=== PATIENT | male | born 1945 | race Caucasian/White ===

== ENCOUNTER 2020-03-29 14:24 | Inpatient (IN) | payer OTHER ==
[~2020-03-29] VITALS: Ht 185.4 cm; Wt 131.7 kg
--- NOTE | ~2020-03-29 | EEG ---
[facility] [place] [address] ELECTROENCEPHALOGRAM Name: ELICIA GRAYSON Room #: 201-P ADM IN M.R.#: [id number] Admission: 03/29/20 Attend Phys: Goran Giron MD Discharge: Date of : 47 Report #: [id number] THIS REPORT FOR: //name// CC: MICHAEL physician/PCP Goran Giron DATE OF SERVICE: 04/09/2020 This patient is being evaluated for altered mental status. EEG was done by placing the electrode by standard 10-20 system of electrode placement. Both referential and sequential montages were used for recording. Background activity in this patient's EEG is about 7-8 Hz and 15 microvolt. It is a poorly formed background activity. Photic stimulation is unremarkable. The patient went to sleep that is associated with bilateral slowing and vertex sharp waves. Throughout the record, no active epileptiform activity was noticed. IMPRESSION: This is an abnormal EEG, which is disorganized and poorly formed. That is a nonspecific abnormality, which can occur with encephalopathy, effect of psychotropic medication, dementia, etc. Clinical correlation is recommended. By: [id number] Chase Barragan MD /nt
--- NOTE | ~2020-03-29 | EMS ---
[place] [address] EMS Patient Care Report Name: ELICIA GRAYSON Room #: REG NEVAEH Forrest#: [id number] Admission: 03/29/20 Attend Phys: Discharge: Date of : 46 Report #: [id number] THIS REPORT FOR: //name// Report Transmitted: 03/29/2020 18:17 EMS Care Summary [place], [place]/[facility] Incident [id number] @ 03/29/2020 13:32 Incident [address] [place] [address] Patient ELICIA GRAYSON Male, 74 Years 1945 Patient Address [address] [place] [address] Patient History Congestive Heart Failure (CHF),Chronic Obstructive Pulmonary Disease (COPD),Atrial Fibrillation,Back Pain (Chronic), Patient Allergies Demerol, Patient Medications Losartan, Furosemide, Eliquis, Gabapentin, Cardizem, Metformin, Chief Complaint BACK PAIN Disposition Transported No Lights/[place] Dispatch Reason Back Pain (Non-Traumatic) Transported To [facility] Narrative DISPATCHED TO A BACK PAIN. ARRIVED ON SCENE TO BE MET BY POLICE AND FIRE. PATIENT TOLD DISPATCH THAT HE WAS UNABLE TO MAKE IT TO THE DOOR DUE TO SEVERE BACK PAIN. CREWS WERE ABLE TO MAKE ENTY THROUGH A REAR [place] [address] EMS Patient Care Report Name: ELICIA GRAYSON Room #: REG ER Lon#: [id number] Admission: 03/29/20 Attend Phys: Discharge: Date of : 46 Report #: [id number] AND OPEN THE FRONT DOOR. GHULAM WAS FOUND SITTING ON A SOFA IN THE FRONT ROOM. HE SAID THAT HE WAS HAVING A SEVERE BACK PAIN FOR TWO WEEKS. THE PAIN HAS EXISTED FOR YEARS BUT IS INTERMITTENT. IT HAS BEEN GETTING PROGRESSIVELY WORSE AND IN THE PAST TWO DAYS HE SAID HE WAS UNABLE TO MOVE FROM THE SOFA TO GET FOOD, WATER, OR MEDICATIONS. HE DESCRIBED THE PAIN SHARP AND SAID THAT IT WENT ALL ACROSS HIS LUMBAR AREA. PATIENT SAID HE HAS ALSO BEEN HAVING A PAIN IN HIS LEFT ARM FOR THOSE TWO DAYS. PATIENT DENIED ANY RECENT INJURIES. HE DENIED ANY OTHER ILLNESS OR PAIN. PATIENT WAS LIFTED TO THE COT, SECURED WITH STRAPS, AND MOVED TO THE AMBULANCE. PATIENT VITALS WERE OBTAINED ALONG WITH A 12 LEAD. HIS RADIAL PULSE WAS PALPATED AND FOUND TO BE WEAK AND MATCHING THE RATE ON THE MONITOR. PATIENT LUNGS WERE AUCULTATED. HE DENIED ANY SHORTNESS OF BREATH. AN IV WAS PLACED. PATIENT WAS PLACED ON OXYGEN VIA NASAL CANNULA. PATIENT WAS TRANSPORTED TO THE HOSPITAL WITH VITALS AND INTERVENTIONS MONITORED ENROUTE. UPON ARRIVAL AT THE HOSPITAL PATIENT WAS MOVED INTO ED ROOM 12 ON THE COT AND HE WAS LIFTED OVER TO THE HOSPITAL BED. PATIENT CARE WAS TURNED OVER TO ED NURSING STAFF. Initial Vitals @14:02P: 31,SpO2: 96, @14:05P: 31,BP: 140/85, @14:06P: 43,SpO2: 97, @13:59P: 45,SpO2: 96, @14:03P: 43,SpO2: 97,MD Suspected: false @13:58P: 39,SpO2: 95, @13:57P: 116,CO: 2, @14:00P: 25,SpO2: 95,MD Suspected: false @14:07P: 43,CO: 1,SpO2: 97, @14:05P: 36,CO: 1,SpO2: 97, @14:11P: 35,CO: 0,SpO2: 97, @14:19SpO2: 97, @14:12P: 49,SpO2: 98, @14:13P: 43,CO: 1,SpO2: 97, @13:56P: 105,R: 18,BP: 158/97,Pain: 8/10,GCS: 15,Glucose: 138,CO: 1,SpO2: 95,Revised Trauma: 12, @14:19P: 23,R: 18,BP: 157/87,Pain: 8/10,GCS: 15,SpO2: 98,Revised Trauma: 12, @14:16P: 43,SpO2: 98, @14:22P: 31,CO: 2,SpO2: 94, @14:17P: 35, @14:09P: 58,BP: 160/148,SpO2: 98, @14:15P: 25,SpO2: 98, @14:21P: 36, @14:19P: 55,CO: 1,SpO2: 98,MD Suspected: false Assessments @13:51MENTAL:Person Oriented,Time Oriented,Event Oriented,Place Oriented,SKIN:HEENT:Head/Face: No Abnormalities,Neck/Airway: No [address] [place] [address] EMS Patient Care Report Name: ELICIA GRAYSON Room #: REG NEVAEH Forrest#: [id number] Admission: 03/29/20 Attend Phys: Discharge: Date of : 47 Report #: [id number] Abnormalities,LUNG SOUNDS:General: No Abnormalities,Left Upper: No Abnormalities,Right Upper: No Abnormalities,Left Lower: No Abnormalities,Right Lower: No Abnormalities,ABDOMEN:General: No Abnormalities,Left Upper: No Abnormalities,Right Upper: No Abnormalities,Left Lower: No Abnormalities,Right Lower: No Abnormalities,PELVIS//GI:No Abnormalities,EXTREMITIES:Right Leg: Weakness,Left Leg: Weakness,Left Arm: Other,Capillary Refill: Right Upper: 3 Sec,Right Arm: No Abnormalities,PULSE:Radial: 1+ Thready,NEURO:Weakness Left-Sided,Weakness Right-Sided, Impression Back Pain Procedures @14:0312-Lead ECGResponse: UnchangedSucceeded@14:1912-Lead ECGResponse: UnchangedSucceeded@14:0012-Lead ECGResponse: UnchangedSucceeded@13:51ALS AssessmentResponse: UnchangedSucceeded@13:58Saline Lock 10cc (20 ga) Site: Antecubital-RightResponse: UnchangedFailed@13:563-Lead ECGResponse: UnchangedSucceeded@14:01Oxygen FlowRate: 4 Device: Nasal Cannula (NC) Response: UnchangedSucceeded Timeline 13:30,Call Received 13:30,Dispatch Notified 13:32,Dispatched 13:33,En Route 13:41,On Scene 13:51,At Patient 13:51,ALS Assessment,Response: UnchangedSucceeded, 13:56,3-Lead ECG,Response: UnchangedSucceeded, 13:56,BP: 158/97 M,PULSE: 105,RR: 18 R,SPO2: 95 Ox,ETCO2: ,B,PAIN: 8,GCS: 15, 13:57,BP: / M,PULSE: 116,RR: R,SPO2: Ox,ETCO2: ,BG: ,PAIN: ,GCS: , 13:58,Saline Lock 10cc 20 ga Site: Antecubital-Right,Response: UnchangedFailed, 13:58,BP: / M,PULSE: 39,RR: R,SPO2: 95 Ox,ETCO2: ,BG: ,PAIN: ,GCS: , 13:59,BP: / M,PULSE: 45,RR: R,SPO2: 96 Ox,ETCO2: ,BG: ,PAIN: ,GCS: , 14:00,12-Lead ECG,Response: UnchangedSucceeded, 14:00,BP: / M,PULSE: 25,RR: R,SPO2: 95 Ox,ETCO2: ,BG: ,PAIN: ,GCS: , 14:01,Oxygen FlowRate: 4 Device: Nasal Cannula (NC) Response: UnchangedSucceeded, 14:02,BP: / M,PULSE: 31,RR: R,SPO2: 96 Ox,ETCO2: ,BG: ,PAIN: ,GCS: , 14:03,12-Lead ECG,Response: UnchangedSucceeded, 14:03,BP: / M,PULSE: 43,RR: R,SPO2: 97 Ox,ETCO2: ,BG: ,PAIN: ,GCS: , 14:05,BP: / M,PULSE: 36,RR: R,SPO2: 97 Ox,ETCO2: ,BG: ,PAIN: ,GCS: , 14:05,BP: 140/85 M,PULSE: 31,RR: R,SPO2: Ox,ETCO2: ,BG: ,PAIN: ,GCS: , 14:06,BP: / M,PULSE: 43,RR: R,SPO2: 97 Ox,ETCO2: ,BG: ,PAIN: ,GCS: , 14:07,BP: / M,PULSE: 43,RR: R,SPO2: 97 Ox,ETCO2: ,BG: ,PAIN: ,GCS: , [address] [place] [address] EMS Patient Care Report Name: ELICIA GRAYSON Room #: REG NEVAEH Forrest#: [id number] Admission: 03/29/20 Attend Phys: Discharge: Date of : 46 Report #: [id number] 14:09,BP: 160/148 M,PULSE: 58,RR: R,SPO2: 98 Ox,ETCO2: ,BG: ,PAIN: ,GCS: , 14:10,Depart Scene 14:11,BP: / M,PULSE: 35,RR: R,SPO2: 97 Ox,ETCO2: ,BG: ,PAIN: ,GCS: , 14:12,BP: / M,PULSE: 49,RR: R,SPO2: 98 Ox,ETCO2: ,BG: ,PAIN: ,GCS: , 14:13,BP: / M,PULSE: 43,RR: R,SPO2: 97 Ox,ETCO2: ,BG: ,PAIN: ,GCS: , 14:15,BP: / M,PULSE: 25,RR: R,SPO2: 98 Ox,ETCO2: ,BG: ,PAIN: ,GCS: , 14:16,BP: / M,PULSE: 43,RR: R,SPO2: 98 Ox,ETCO2: ,BG: ,PAIN: ,GCS: , 14:17,BP: / M,PULSE: 35,RR: R,SPO2: Ox,ETCO2: ,BG: ,PAIN: ,GCS: , 14:19,12-Lead ECG,Response: UnchangedSucceeded, 14:19,BP: / M,PULSE: 55,RR: R,SPO2: 98 Ox,ETCO2: ,BG: ,PAIN: ,GCS: , 14:19,BP: / M,PULSE: ,RR: R,SPO2: 97 Ox,ETCO2: ,BG: ,PAIN: ,GCS: , 14:19,BP: 157/87 M,PULSE: 23,RR: 18 R,SPO2: 98 Ox,ETCO2: ,BG: ,PAIN: 8,GCS: 15, 14:19,At Destination 14:21,BP: / M,PULSE: 36,RR: R,SPO2: Ox,ETCO2: ,BG: ,PAIN: ,GCS: , 14:22,BP: / M,PULSE: 31,RR: R,SPO2: 94 Ox,ETCO2: ,BG: ,PAIN: ,GCS: , 14:39,Call Closed Disclaimer v1.1 Copyright 2020 [employer] This EMS Care Summary contains data elements from the applicable legal record (which may be displayed differently). It is designed to provide pertinent information for the following purposes: continuity of care, clinical quality, and state data reporting. The complete legal record is available to ED staff and administrators of the receiving hospital in ES's Patient Tracker. All data is provided "as is."
[2020-03-29 14:25] VITALS: BP 149/95
[2020-03-29] MEDS ORDERED: CARVEDILOL12.5 MG PO (14:38)
[2020-03-29] MEDS ORDERED: METFORMIN HCL500 M3 PO (14:38)
[2020-03-29] MEDS ORDERED: NEURONTIN 300M300 M2 PO (14:39)
[2020-03-29] MEDS ORDERED: FUROSEMIDE 20 M20 MG PO (14:39)
[2020-03-29] MEDS ORDERED: ELIQUIS5 MG PO (14:39)
[2020-03-29] MEDS ORDERED: TOPROL XL50 MG PO (14:40)
[2020-03-29] MEDS ORDERED: COZAAR 25 MG TA25 M1 PO (14:40)
[2020-03-29 14:51] LABS: ABSOLUTE NEUTROPHILS 5.6 thou/uL (1.4-8.2); BASOPHILS 0.5 % (0.0-2.0); EOSINOPHILS 0.1 % (0.0-3.0); HEMOGLOBIN 12.8 gm/dL (14.0-18.0); LYMPHOCYTES 9.7 % (24.0-44.0); MCH 30.8 pg (26.0-34.0); MCHC 32.7 g/dL (28.0-37.0); MONOCYTES 7.4 % (1.0-8.0); PLATELET COUNT 187 thou/uL (150-400); POLYS 82.3 % (36.0-66.0); RBC 4.14 mil/uL (4.50-6.00); RDW 15.1 % (10.5-14.5); WBC 6.9 thou/uL (4.0-11.0)
[2020-03-29 15:01] LABS: CREATININE 1.4 mg/dL (0.7-1.3); POTASSIUM 4.3 mmol/L (3.5-5.1)
[2020-03-29 15:07] LABS: ALBUMIN 3.5 g/dL (3.4-5.0); TOTAL BILIRUBIN 1.5 mg/dL (0.2-1.0)
[2020-03-29 18:29] LABS: URINE BILIRUBIN 1+ (Negative); URINE BLOOD NEGATIVE (Negative); URINE CLARITY CLEAR; URINE COLOR YELLOW; URINE GLUCOSE-RANDOM* NEGATIVE (Negative); URINE KETONES 1+ (Negative); URINE LEUKOCYTES-REFLEX NEGATIVE (Negative); URINE NITRITE-REFLEX NEGATIVE (Negative); URINE PROTEIN (DIPSTICK) TRACE (Negative); URINE SPECIFIC GRAVITY 1.025 (1.005-1.035)
[2020-03-29 18:30] LABS: ICTOTEST (BILI CONFIRMATORY) Negative (Negative)
[2020-03-29 20:04] VITALS: BP 126/90
[2020-03-30] VITALS (7 sets, daily range): BP systolic 90–149; BP diastolic 48–119
[2020-03-30 05:36] LABS: HEMATOCRIT 37.8 % (42.0-52.0); HEMOGLOBIN 12.5 gm/dL (14.0-18.0); MCH 31.2 pg (26.0-34.0); MCHC 33.1 g/dL (28.0-37.0); MCV 94.5 fL (80.0-100.0); RBC 4.01 mil/uL (4.50-6.00); RDW 14.7 % (10.5-14.5); WBC 5.7 thou/uL (4.0-11.0)
[2020-03-30 06:06] LABS: ANION GAP 14 mmol/L (7-16); BUN 21 mg/dL (7-18); CALCIUM 9.7 mg/dL (8.5-10.1); CHLORIDE 103 mmol/L (98-107); CHOLESTEROL 95 mg/dL (<200); CO2 22 mmol/L (21-32); CREATININE 1.1 mg/dL (0.7-1.3); GLUCOSE 121 mg/dL (74-106); HDL CHOLESTEROL 40 mg/dL (>40); LDL CHOLESTEROL 41 mg/dL (<100); POTASSIUM 4.2 mmol/L (3.5-5.1); SERUM ASSESSMENT Clear; SODIUM 139 mmol/L (136-145); TC:HDL 2.4 Ratio (Not establshd); TRIGLYCERIDE 72 mg/dL (<150); VLDL 14 mg/dL (<40)
--- NOTE | 2020-03-30 07:34 | EKG ---
[facility] [place] [address] ELECTROCARDIOGRAM REPORT Name: ELICIA GRAYSON Room #: 170-12 ADM IN M.R.#: [id number] Admission: 03/29/20 Attend Phys: Goran Giron MD Discharge: Date of : 46 Report #: [id number] THIS REPORT FOR: cc: FAM - No family physician/PCP FAM - No family physician/PCP Manuel Fields MD [facility] ~ THIS REPORT FOR: //name// [facility] ED Test Date: 2020-03-29 Test Time: 14:33:17 Pat Name: ELICIA GRAYSON Department: Room: 170 Gender: M Quality Rn: IVIS : 1945 Requested By: Ariel Stone Order Number: [id number] MD: Manuel Fields Measurements Intervals [place] Rate: 118 P: CT: QRS: -72 QRSD: 128 T: 83 QT: 354 QTc: 497 Interpretive Statements Atrial fibrillation Premature ventricular complexes Nonspecific IVCD with LAD No previous ECG available for comparison Electronically Signed On 03-30-2020 7:33:56 ACADEMIC PHYSICIAN by Manuel Fields [email or web address] <ELECTRONICALLY SIGNED> By: Manuel Fields MD, FACC 03/30/20 0733 1433 1433 Manuel Fields MD, [facility] /EPI
--- NOTE | 2020-03-30 08:59 | NUR ---
FAXED MRI FORM
--- NOTE | 2020-03-30 09:57 | NUR ---
PLEASE CONTACT SISTER, Kristi HILL/ SHAUN [phone]
--- NOTE | 2020-03-30 12:05 | NUR ---
SPOKE TO MEIR FRANCE TO CLEAR PT OUT OF COVID PRECAUTIONS
--- NOTE | 2020-03-30 13:30 | NUR ---
MEAL GIVEN AT ABOUT 50 PERCENT. PAIN WHEN MOVES, OTHERWISE STATES COMFORTABLE OFFERED PAIN MEDICATION DECLINED.
--- NOTE | 2020-03-30 15:01 | NUR ---
SPINAL DR AT BEDSIDE TO ASSESS
--- NOTE | 2020-03-30 17:55 | NUR ---
MOVED TO HOSPITAL BED FOR COMFORT. PT CO INCREASED PAIN AND WANTS PAIN MEDICATION
--- NOTE | 2020-03-30 18:35 | NUR ---
MORPHINE HAS BEEN AFFECTIVE, INSULIN NOT GIVEN MEAL TRAY NOT ARRIVED. HR HAS BEEN BELOW 110 ALL SHIFT
[2020-03-31 00:06] LABS: GLYCOHEMOGLOBIN (HGB A1C) 6.4 % (4.8-5.6)
[2020-03-31 00:36] VITALS: BP 114/74
--- NOTE | 2020-03-31 04:10 | NUR ---
NEW ADMIT FROM ER. PAIN MANAGED PER MD ORDER. CPAP NOC. VSS. NO S/S ACUTE DISTRESS NOTED OR REPORTED AT THIS TIME. WILL CONT TO MONITOR FOR ANY CHANGES IN CONDITION.
[2020-03-31 04:58] VITALS: BP 116/77
[2020-03-31 05:32] LABS: HEMOGLOBIN 12.2 gm/dL (14.0-18.0); MCH 31.2 pg (26.0-34.0); MCHC 33.1 g/dL (28.0-37.0); MCV 94.1 fL (80.0-100.0); PLATELET COUNT 164 thou/uL (150-400); RBC 3.93 mil/uL (4.50-6.00); RDW 15.2 % (10.5-14.5); WBC 4.9 thou/uL (4.0-11.0)
[2020-03-31 06:25] LABS: CALCIUM 9.9 mg/dL (8.5-10.1); CREATININE 1.3 mg/dL (0.7-1.3); POTASSIUM 4.2 mmol/L (3.5-5.1)
[2020-03-31 08:13] VITALS: BP 144/96
[2020-03-31 10:28] LABS: ABSOLUTE NEUTROPHILS 4.1 thou/uL (1.4-8.2)
--- NOTE | 2020-03-31 11:24 | NUR ---
Received awake on bed. Due medications given as prescribed, able to swallow meds w/o difficulty. On room air during daytime and CPAP at night. On Telemetry; no complains and signs of chest pain, crushing sensation and heaviness; noted Vtach on the monitor this AM- Dr Coker informed- to order EKG- requested. On carb controlled diet- tolerating well; no nausea, no vomiting and no abdominal pain noted. On blood sugar monitoring, taken and recorded accordingly. Falls bundle in place. With kendrick in place- output measured and recorded accordingly. With R AC-SL; on IV antibiotics. With L FA cellulitis- skin intact; kept elevated. Complained of pain, due PRN pain meds given as prescribed. Assisted in ADLs. To continue monitoring patient.
[2020-03-31 15:41] VITALS: BP 127/103
[2020-03-31 20:00] VITALS: BP 106/68
--- NOTE | 2020-04-01 04:32 | NUR ---
VSS-AFEBRILE. C/O SIGNIFICANT BACK PAIN THAT IS PARTIALLY RELIEVED WITH IV AND PO PAIN MEDICATIONS. SOA AT REST, WORE CPAP OVERNIGHT WITH 2L O2 BLEED. TURNED AND OFFERED ORAL HYDRATION EVERY TWO HOURS FOR COMFORT. FALL PRECAUTIONS IN PLACE.
--- NOTE | 2020-04-01 05:02 | HC ---
[facility] [place] [address] CONSULTATION Name: ELICIA GRAYSON Room #: 455-P ADM IN M.R.#: [id number] Admission: 03/29/20 Attend Phys: Goran Giron MD Discharge: Date of : 46 Report #: [id number] THIS REPORT FOR: cc: FAM - No family physician/PCP FAM - No family physician/PCP David Pike MD ~ DATE OF SERVICE: 03/31/2020 INFECTIOUS DISEASE CONSULTATION ATTENDING PHYSICIAN: Dr. Goran Giron. REASON FOR CONSULTATION: Apparent staphylococcal septicemia. The patient presented with severe back pain. HISTORY OF PRESENT ILLNESS: Chart reviewed and the patient examined. This is a 74-year-old gentleman with known history of diabetes mellitus, some COPD, who presented to the Emergency Room with roughly 2-week history of back pain, has progressed, became quite severe, now rating at 8/10, initially had left arm pain, it began about 3 days ago. We concerns about possible primary issue with his vertebra. Plain film showed extensive spondylosis of the lower lumbar spine with disk narrowing. Doppler showed no evidence of upper extremity DVT. He was COVID antigen negative. Chest x-ray was otherwise only remarkable for cardiomegaly. Urinalysis again was nonrevealing, did undergo MRI of the lumbar spine, which showed mild subcutaneous edema without evidence of abscess, mild skin thickening suggest perhaps cellulitis. Blood cultures collected at time of admission, now with 2 out 2 growth of gram-positive cocci suggestive of Staph. He denies any recent fevers or chills. Appetite has been somewhat diminished overall. Denies any significant pulmonary or gastrointestinal related complaints. He was empirically started on vancomycin 1000 mg IV q. 8 hours. ALLERGIES: MEPERIDINE. CURRENT MEDICATIONS: Include lidocaine patch, gabapentin, carvedilol, furosemide, albuterol, metformin, apixaban, vancomycin, insulin lispro, morphine, hydrocodone, p.r.n. analgesics and antiemetics. 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 SOCIAL HISTORY: Nonsmoker, occasional ethanol, no illicit drug use. FAMILY HISTORY: Noncontributory. [address] [address] CONSULTATION Name: ELICIA GRAYSON Room #: 455-P [facility] IN M.R.#: [id number] Admission: 03/29/20 Attend Phys: Goran Giron MD Discharge: Date of : 47 Report #: [id number] REVIEW OF SYSTEMS: Otherwise, unremarkable. PHYSICAL EXAMINATION: GENERAL: He is in moderate distress, exacerbated with any kind of movement, which he attributes to his back pain, appears ill, not overtly toxic, somewhat undernourished. VITAL SIGNS: Temperature 98, pulse 60, respirations 18, blood pressure 116/77. SKIN: Warm, dry, no rashes. HEENT: Otherwise, unremarkable. NECK: Supple. LUNGS: Clear to auscultation bilaterally, somewhat diminished. HEART: Regular. I do not appreciate a murmur. ABDOMEN: Obese, soft and nontender. EXTREMITIES: No cyanosis. GENITOURINARY AND RECTAL: Deferred. LABORATORY DATA: As described above. Sed rate was elevated at 90. Electrolytes: Sodium 139, potassium 4.2, chloride 104, bicarbonate is 23, anion gap of 12, BUN and creatinine 28 and 1.3. Vancomycin trough this morning was 12. CBC: White count of 4.9, H and H 12.2 and 37.0, platelets of 164. Hemoglobin A1c of 6.4. Lumbar spine as described above. ASSESSMENT AND PLAN: Gram-positive cocci, septicemia. I think given the picture, would be concerned that this is indeed real, we will continue vancomycin, may need to adjust the dose upward. We will repeat blood cultures to assure that we clear the blood stream. He will need an echo. I think thoracic MRI is worthwhile as well given the possibility of not catching it on the lumbar if it is in the transition region and see how he does clinically, certainly at risk for other types of its complications. We will add incentive spirometry ___ about decubitus ulcers as well as thrombosis. <ELECTRONICALLY SIGNED> By: David Pike MD 04/01/20 0502 27 David Pike MD /nt
[2020-04-01 07:40] VITALS: BP 148/82
[2020-04-01 14:42] LABS: URINE BLOOD 3+ (Negative); URINE GLUCOSE-RANDOM* NEGATIVE (Negative); URINE KETONES NEGATIVE (Negative); URINE LEUKOCYTES-REFLEX NEGATIVE (Negative); URINE NITRITE-REFLEX NEGATIVE (Negative); URINE PROTEIN (DIPSTICK) 2+ (Negative); URINE SPECIFIC GRAVITY >= 1.030 (1.005-1.035)
[2020-04-01 14:44] LABS: ICTOTEST (BILI CONFIRMATORY) Negative (Negative); URINE BILIRUBIN NEGATIVE (Negative); URINE CLARITY CLOUDY; URINE COLOR BROWN
[2020-04-01 15:03] LABS: CASTS None Seen /LPF (None Seen); SQUAMOUS 0-3 Few /LPF (0-3); URINE RBC >20 Many /HPF (0-2); URINE WBC-REFLEX 0-5 Rare /HPF (0-5)
[2020-04-01 15:04] LABS: AMORPHOUS URATES Moderate /LPF (None Seen); BACTERIA-REFLEX 1-9 Few /HPF (None Seen)
[2020-04-01 15:42] VITALS: BP 133/72
--- NOTE | 2020-04-01 19:49 | NUR ---
Assumed pt care this am, chronic pain is managed with medications partial relief noted. UA sent to lab. Blood sugar monitored, medications given as per emar. Uses a cipap at night for sleep apnea, no nausea or vomiting noted. On 3L of O2 via NC, FC in place draining.BLE elevated, L FA elevated as well. Ran Afib on the tele controlled. POC followed, VS stable no signs or verbalizations of distress noted. Endorsed to the machinist 2nd shift.
[2020-04-01 20:38] VITALS: BP 117/68
--- NOTE | 2020-04-02 04:32 | NUR ---
AWAKE AND ALERT WITH OCCASIONAL CONFUSION. NOTED BLOOD AND SEDIMENTS IN [place] TUBING. REPORTED TO RETURN TO VENDOR FLOORING HELPER. PER RETURN TO VENDOR, DO NOT CHANGE TUBING OR FLUSH THE LINE, ONLY MONITOR FOR NOW. VSS. NO S/S ACUTE DISTRESS NOTED OR REPORTED AT THIS TIME. WILL CONT TO MONITOR FOR ANY CHANGES IN CONDITION.
--- NOTE | 2020-04-02 07:10 | EKG ---
[facility] [place] [address] ELECTROCARDIOGRAM REPORT Name: ELICIA GRAYSON Room #: 455-P ADM IN M.R.#: [id number] Admission: 03/29/20 Attend Phys: Goran Giron MD Discharge: Date of : 46 Report #: [id number] THIS REPORT FOR: cc: MICHAEL - No family physician/PCP MICHAEL - No family physician/PCP Kojo Petit MD [facility] THIS REPORT FOR: //name// [facility] Test Date: 2020-03-31 Test Time: 11:23:49 Pat Name: ELICIA GRAYSON Department: Room: 455 P Gender: M Bundle Cutter: kai : 1945 Requested By: Cristi Coker Order Number: [id number] MD: Kojo Petit Measurements Intervals [place] Rate: 86 P: MI: QRS: -70 QRSD: 137 T: 103 QT: 369 QTc: 442 Interpretive Statements Atrial fibrillation Nonspecific IVCD with LAD Nonspecific T abnormalities, lateral leads Compared to ECG 03/29/2020 14:33:17 T-wave abnormality now present Ventricular premature complex(es) no longer present Electronically Signed On 04-02-2020 7:09:55 REGIONAL SERVICE MANAGER by Kojo Petit [email or web address] <ELECTRONICALLY SIGNED> By: Kojo Petit MD, FACC 04/02/20 0709 1123 1123 Kojo Petit MD, FACC /EPI
--- NOTE | 2020-04-02 11:08 | 2DMMODE ---
[address] [address] 2 D/M-MODE ECHOCARDIOGRAM Name: ELICIA GRAYSON Room #: 455-P ADM IN M.R.#: [id number] Admission: 03/29/20 Attend Phys: Goran Giron MD Discharge: Date of : 46 Report #: [id number] THIS REPORT FOR: cc: MICHAEL - Maryam family physician/PCP MICHAEL - Maryam family physician/PCP Kojo Petit MD [facility] ~ APPROVED REPORT Study performed: 04/02/2020 10:13:51 EXAM: Comprehensive 2D, Doppler, and color-flow Echocardiogram Patient Location: Bedside Room #: [facility] Status: routine BSA: 2.49 HR: 103 bpm BP: 117/68 mmHg Rhythm: Atrial Fibrillation Other Information Study Quality: Technically DifficultTechnically Limited Technically limited study due to body habitus, lung disease, uncooperative patient, inability to position patient. Indications COPD Diabetes Atrial Fibrillation Cardiomyopathy Hypertension/HDD Staph 2D Dimensions IVC: 34.00 mm Aortic Valve AoV Peak Ramsey.: 1.65 m/s AO Peak Gr.: 10.94 mmHg LVOT Max P.40 mmHg LVOT Max V: 0.77 m/s Pulmonary Valve PV Peak Ramsey.: 1.18 m/s PV Peak Gr.: 5.[address] [address] 2 D/M-MODE ECHOCARDIOGRAM Name: ELICIA GRAYSON Room #: 455-P ADM IN M.R.#: [id number] Admission: 03/29/20 Attend Phys: Goran Giron MD Discharge: Date of : 47 Report #: [id number] Tricuspid Valve TR Peak Ramsey.: 2.72 m/s TR Peak Gr.: 29.74 mmHg PA Pressure: 45.00 mmHg Left Ventricle The left ventricle is normal size. There is normal left ventricular wall thickness. Left ventricular systolic function is borderline. LVEF is 50%. This study is not technically sufficient to allow evaluation of the LV diastolic function due to atrial fibrillation. Right Ventricle Right ventricle is dilated. Right ventricle is hypokinetic. Atria Left atrium is dilated. Right atrium is dilated. Aortic Valve The aortic valve is normal in structure. The Aortic valve is sclerotic. No aortic regurgitation is present. There is no aortic valvular stenosis. Mitral Valve The mitral valve is normal in structure. Trace to mild mitral regurgitation. No evidence of mitral valve stenosis. Tricuspid Valve The tricuspid valve is normal in structure. There is trace to mild tricuspid regurgitation. Estimated PAP 45 mmHg. There is moderate pulmonary hypertension. Pulmonic Valve The pulmonary valve is normal in structure. There is no pulmonic valvular regurgitation. Great Vessels The aortic root is normal in size. The inferior vena cava is dilated with no inspiratory collapse. Pericardium There is no pericardial effusion. <Conclusion> Technically difficult study [facility] [address] [place] [address] 2 D/M-MODE ECHOCARDIOGRAM Name: ELICIA GRAYSON Room #: 455-P ADM IN M.R.#: [id number] Admission: 03/29/20 Attend Phys: Goran Giron MD Discharge: Date of : 47 Report #: [id number] normal left ventricle size and wall thickness Low normal ejection fraction of 50% Mild biatrial enlargement Right ventricle was not well seen but appears to be mildly dilated Mild mitral valve insufficiency Mild tricuspid valve insufficiency Pulmonary artery systolic pressure estimated at 45 mmHg No pericardial effusion <ELECTRONICALLY SIGNED> By: Kojo Petit MD, FACC 04/02/208 07 07 Kojo Petit MD, FACC /INF
--- NOTE | 2020-04-02 14:54 | NUR ---
PT ADMITTED RELATED TO BLE CELLULITIS, STAPH SEPTICEMIA. CM REVIEWED CHART AND SPOKE WITH CARE TEAM. CM MET WITH PT AT BEDSIDE THIS DAY. PT APPEARS TO BE A&O X4. CM ROLE INTRODUCED. 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 PT INDICATED HE HAS A CANE, FWW, AND CPAP FOR HOME USE. PT INDICATED HE HAD BEEN ABLE TO DO OWN ADLS UP UNTIL A FEW DAYS PRIOR TO ADMISSION. PT INDICATED HE SEES PRIMARY CARE OVER AT THE [place] WITH THE BL[facility] BUT CAN'T RECALL PCP NAME. WHEN ASKED WHO TO CONTACT IN CASE OF EMERGENCY PT INDICATED THAT THE [place] HAS THAT INFO. CM NOTIFIED UR NURSE THAT PT INDICATED THAT HE IS [place]. PT INDICATED HE HAD BEEN FOR POST ACUTE CARE STAY 20 YRS AGO AFTER POST ACUTE CARE STAY. CM TO FOLLOW INDICATED WITH DC PLANNING.
[2020-04-02 16:02] VITALS: BP 124/85
[2020-04-02 16:03] VITALS: BP 107/57
[2020-04-02 19:26] VITALS: BP 123/74
--- NOTE | 2020-04-02 20:37 | NUR ---
Assumed pt care this am, VS axel was not able to work with PT, I was informed pt is not able to get up and if attempted would require more that 2. Stayed on the bed for most of the day, very difficult to reposition and would refuse at times. Emilia on hold as per Dr. Morales d/t emilia through. FC in place drainig very dark urine with sediments, aware. POC followed, endorsed to the night nurse.
[2020-04-03 06:06] LABS: CALCIUM 9.7 mg/dL (8.5-10.1); POTASSIUM 4.9 mmol/L (3.5-5.1)
[2020-04-03 06:07] LABS: CREATININE 2.7 mg/dL (0.7-1.3)
--- NOTE | 2020-04-03 07:17 | NUR ---
BPCI LETTER ISSUED TO PATIENT AND OR ADMISSION PACKET
[2020-04-03 07:35] VITALS: BP 112/67
--- NOTE | 2020-04-03 13:23 | NUR ---
Pt continues to complain of pain. Pt's iv vanc is being held. Repeat MRI lumbar and thoracic spine was ordered by ID today. [facility] consulted for rehab needs. Cm had provided pt with a snf list for review as well in the event 5n isn't appropriate. Pt's loved one calls unit to update pt about his dogs that she's caring for. Cm to follow as indicated with dc planning.
--- NOTE | 2020-04-03 13:53 | NUR ---
Received awake on bed. Due medications given as prescribed, able to swallow meds w/o difficulty. On room air during daytime, using Cpap at night. On telemetry; no complains and signs of chest pain, crushing sensation and heaviness. On carb controlled diet- tolerating well; no nausea, no vomiting and no abdominal pain noted. On blood sugar monitoring, taken and recorded accordingly; with sliding scale insulin ordered, given as prescribed. With kendrick in place- draining well; output measured and recorded accordingly. With SL at R FA- intact and flushing well. Assisted in ADLs. Vitral signs stable. Complained of pain, due PRN pain meds given as prescribed. To continue monitoring patient. Pt seen and examined by Dr Pike and Dr Andrews this AM, MRI re-ordered- pt informed and aware. To continue monitoring patient.
[2020-04-03 16:21] VITALS: BP 131/91
[2020-04-03 20:55] LABS: BE(vivo) -4.9 mmol/L (-2 to +3); HCO3 20.9 mmol/L (22.0-26.0); PCO2 41.6 mmHg (35.0-45.0); PO2 72.2 mmHg (80.0-100.0); sO2 93.4 % (92.0-98.0)
[2020-04-03 20:56] LABS: pH 7.319 (7.360-7.450)
--- NOTE | 2020-04-04 07:55 | NUR ---
REFUSED TELEMETRY MOST OF LIFTER. REFUSED TO HAVE VS TAKEN, AND REFUSED MORNING LABS TO BE DRAWN. YELLS AND IS AGGRESSIVE TO STAFF, CONFUSED, AND DIFFICULT TO ORIENT. CHECKED ABG AND CXR TO ENSURE PATIENT IS OXYGENATING WELL, ALL WERE STABLE. FALL PRECAUTIONS IN PLACE.
--- NOTE | 2020-04-04 09:11 | NUR ---
Nutrition: Admitted with BLE cellulitis and staph septicemia, PMHx of CHF, YUMIKO, DM, COPD, A-Fib, HTN, HLD, and peripheral neuropathy. Pt tolerating PO well on a diabetic carb controlled diet. Eating 40-80% of meals since admit. Denies recent wt loss and wt is stable with reported ubw ~290lb. Labs reviewed, BG POC 138-206, hA1C 6.4. Renal fxn impaired, BUN 68 and Creat 2.7. On SSI and lasix. Low tylor score. Low Nutrition risk with interventions in place.
[2020-04-04 09:49] LABS: ABSOLUTE NEUTROPHILS 3.7 thou/uL (1.4-8.2); BASOPHILS 0.4 % (0.0-2.0); EOSINOPHILS 0.6 % (0.0-3.0); HEMATOCRIT 33.2 % (42.0-52.0); HEMOGLOBIN 10.9 gm/dL (14.0-18.0); LYMPHOCYTES 7.2 % (24.0-44.0); MCH 30.8 pg (26.0-34.0); MCHC 32.9 g/dL (28.0-37.0); MCV 93.4 fL (80.0-100.0); PLATELET COUNT 197 thou/uL (150-400); POLYS 81.8 % (36.0-66.0); RBC 3.56 mil/uL (4.50-6.00); RDW 15.3 % (10.5-14.5); WBC 4.5 thou/uL (4.0-11.0)
[2020-04-04 10:09] LABS: ALBUMIN 2.5 g/dL (3.4-5.0); CALCIUM 9.6 mg/dL (8.5-10.1); CREATININE 2.2 mg/dL (0.7-1.3); POTASSIUM 4.7 mmol/L (3.5-5.1); TOTAL BILIRUBIN 0.8 mg/dL (0.2-1.0); TOTAL PROTEIN 6.1 g/dL (6.4-8.2)
[2020-04-04 10:13] VITALS: BP 127/82
--- NOTE | 2020-04-04 14:01 | NUR ---
Received awake on bed. Due medications given as prescribed, able to swallow meds w/o difficulty. On room air. Vital signs stable. On room air during daytime and CPAP at night. On telemetry; no complains and signs of chest pain, crushing sensation and heaviness. Assisted in ADLs. On carb controlled diet- tolerating well; no nausea, no vomiting and no abdominal pain noted; assisted and encouraged in eating and drinking. On blood sugar monitoring, taken and recorded accordingly; with sliding scale insulin ordered; given as prescribed. With SL at L hand- intact and flushing well. Dr Andrews informed re: new confusion from last night, physician aware. To continue monitoring patient. Still complaining of pain, due PRN pain meds given as prescribed; Dr Andrews aware- will prescribe scheduled dose of pain meds.
[2020-04-04 15:58] VITALS: BP 117/72
--- NOTE | 2020-04-04 16:20 | NUR ---
5N rehab liason is continuing to follow. Awaiting additional workup and therapy imput. Pt with increased confusion and mental status changes over night per nursing. DC timeframe is uncertain. Repeat imaging pending. Will follow.
[2020-04-04 20:14] VITALS: BP 133/80
--- NOTE | 2020-04-05 06:58 | NUR ---
Pt. rested quietly during the night when checked on during frequent rounds. No noted behavioral problems during the shift. Alert and oriented times four. He has been given oral pain meds for c/o back pain with some relief noted. He refuses to be turned and pt. screams out loud when you barely touch to reposition him. Bed alarm is on.
[2020-04-05 08:22] VITALS: BP 119/87
[2020-04-05 09:36] LABS: HEMATOCRIT 34.4 % (42.0-52.0); HEMOGLOBIN 11.1 gm/dL (14.0-18.0); MCH 30.5 pg (26.0-34.0); MCHC 32.3 g/dL (28.0-37.0); MCV 94.6 fL (80.0-100.0); PLATELET COUNT 229 thou/uL (150-400); RBC 3.64 mil/uL (4.50-6.00); RDW 15.1 % (10.5-14.5); WBC 4.6 thou/uL (4.0-11.0)
[2020-04-05 09:51] LABS: ALBUMIN 2.5 g/dL (3.4-5.0); CALCIUM 10.4 mg/dL (8.5-10.1); CREATININE 2.1 mg/dL (0.7-1.3); TOTAL BILIRUBIN 0.8 mg/dL (0.2-1.0); TOTAL PROTEIN 7.4 g/dL (6.4-8.2)
[2020-04-05 10:05] LABS: ABSOLUTE NEUTROPHILS 3.6 thou/uL (1.4-8.2); PLATELET ESTIMATE NORMAL
[2020-04-05 16:48] VITALS: BP 139/69
[2020-04-05 20:28] VITALS: BP 138/89
--- NOTE | 2020-04-06 04:05 | NUR ---
Pt. rested quietly during the night when checked on during frequent rounds. He does not like to be repositioned due to pain upon movement to his back. Pt. also keeps taking his oxygen out of his nose. Currently on c-pap and has been compliant with it. Bed alarm is on.
[2020-04-06 10:35] VITALS: BP 172/100
[2020-04-06 12:40] VITALS: BP 157/95
[2020-04-06 12:52] LABS: CALCIUM 10.7 mg/dL (8.5-10.1); CREATININE 1.9 mg/dL (0.7-1.3); POTASSIUM 5.2 mmol/L (3.5-5.1)
--- NOTE | 2020-04-06 13:27 | NUR ---
CARE TEAM INDICATED THAT REPEAT MRI'S HAD BEEN DONE WITH NO FINDINGS. PT IS MORE CONFUSED THEN HE HAD BEEN UPON ADMISSION. ST EVALUATED AND INDICATED SEVERE IMPAIRMENT. 5N HAD BEEN FOLLOWING PT HAD ALSO BEEN GIVEN A SNF LIST. CM TO FOLLOW INDICATED WITH DC PLANNING. NOT CERTAIN OF DC RECOMMENDATIONS OF THIS NOTE.
[2020-04-06 16:00] VITALS: BP 135/82
[2020-04-06 16:53] VITALS: BP 135/82
[2020-04-06 18:18] LABS: BE(vivo) -1.8 mmol/L (-2 to +3); HCO3 24.6 mmol/L (22.0-26.0); PCO2 48.9 mmHg (35.0-45.0); PO2 96.7 mmHg (80.0-100.0); sO2 96.8 % (92.0-98.0)
--- NOTE | 2020-04-06 18:24 | NUR ---
Received awake on bed. Due medication given as prescribed. On carb controlled diet- refusing meals, with poor appetite; no nausea, no vomiting and no abdominal pain noted. On O2 at 3lpm via nasal cannula and CPAP at night. On telemetry; no complains and signs of chest pain, crushing sensation and heaviness; pt refusing to have telemetry leads at times, tried several times place them back. On blood sugar monitoring, taken and recorded accordingly. With kendrick in place- output measured and recorded accordingly; draining well. With SL at L FA- intact, wrapped in coban. Assisted in ADLs. Pt refused to be turned- too painful. Pt seen and examined by Dr Andrews, informed him about increasing confusion, combative with staff- Dr Santillan consulted- US called in consult. Kendrick removed as ordered by Dr Andrews. To continue monitoring patient. Lung sounds worse this evening- Dr Andrews informed; Stat ABG and chest xray ordered- relayed to Dr Andrews re: ABG results, a/w chest xray results.
[2020-04-06 19:09] VITALS: BP 122/62
--- NOTE | 2020-04-06 22:52 | NUR ---
FISH SMOKER CALLED FOR DECREASED LOC. SEE FISH SMOKER FLOWSHEET.
[2020-04-06 22:57] LABS: HEMATOCRIT 34.9 % (42.0-52.0); HEMOGLOBIN 11.2 gm/dL (14.0-18.0); MCH 30.1 pg (26.0-34.0); MCV 94.1 fL (80.0-100.0); RBC 3.7 mil/uL (4.50-6.00); RDW 15.3 % (10.5-14.5)
[2020-04-06 23:02] LABS: CALCIUM 10.5 mg/dL (8.5-10.1); CREATININE 1.8 mg/dL (0.7-1.3); POTASSIUM 5.1 mmol/L (3.5-5.1)
[2020-04-06 23:05] LABS: BE(vivo) 0.6 mmol/L (-2 to +3); HCO3 27.8 mmol/L (22.0-26.0); PCO2 56.3 mmHg (35.0-45.0); PO2 89.6 mmHg (80.0-100.0)
[2020-04-06 23:06] LABS: pH 7.312 (7.360-7.450)
[2020-04-07 05:06] LABS: HEMATOCRIT 33.4 % (42.0-52.0); HEMOGLOBIN 10.8 gm/dL (14.0-18.0); MCH 30.5 pg (26.0-34.0); MCHC 32.4 g/dL (28.0-37.0); MCV 94.1 fL (80.0-100.0); RBC 3.54 mil/uL (4.50-6.00); RDW 15.5 % (10.5-14.5); WBC 5.1 thou/uL (4.0-11.0)
[2020-04-07 05:23] LABS: ALBUMIN 2.4 g/dL (3.4-5.0); CALCIUM 10.4 mg/dL (8.5-10.1); CREATININE 1.8 mg/dL (0.7-1.3); PHOSPHORUS 4.2 mg/dL (2.5-4.9); POTASSIUM 5.2 mmol/L (3.5-5.1)
--- NOTE | 2020-04-07 06:42 | NUR ---
VSS-AFEBRILE. DIFFICULT TO AROUSE EARLY IN SHIFT, COMMUNITY SERVICE TECHNICIAN CALLED. BLOOD GAS, AND LABS DONE. BLADDER SCAN REVEALED >800ML URINE IN BLADDER. SANTOS PLACED, QUICK RETURN OF 800 ML URINE. PLACED ON BIPAP FOR REST OF NIGHT, AWAITING MORNING ABG RESULTS TO DETERMINE IF PATIENT WILL BE KEPT ON BIPAP AND MOVED TO ANOTHER UNIT. REMAINS DIFFICULT TO AROUSE THIS MORNING. HELD MORPHINE AND ORAL PAIN MEDS OVERNIGHT UNTIL MORE AROUSABLE.
[2020-04-07 06:49] VITALS: BP 138/82
[2020-04-07 10:18] LABS: BE(vivo) -0.2 mmol/L (-2 to +3); HCO3 25.7 mmol/L (22.0-26.0); PCO2 46.8 mmHg (35.0-45.0); PO2 128.9 mmHg (80.0-100.0); pH 7.357 (7.360-7.450); sO2 98.4 % (92.0-98.0)
[2020-04-07 12:18] VITALS: BP 159/56
--- NOTE | 2020-04-07 13:55 | NUR ---
CONSULTED TO PLACE A PICC FOR A PATIENT NEEDING ACCESS FOR TPN. ORDER AND CONSENT NOTED. THE PATIENT IS LETHARGIC BUT SHAKES HIS HEAD YES AND NO. A #4F DOUBLE LUMEN POWER PICC WAS PLACED PER HOSPITAL POLICY AFTER A BEDSIDE TIMEOUT WAS COMPLETED. THE LINE WAS TRIMMED TO 44CM AND ADVANCED WITHOUT DIFFICULTY. A STAT CHEST XRAY CONFIRMED THE LINE IN THE SVC AND RELEASED FOR USE
--- NOTE | 2020-04-07 14:30 | NUR ---
Received awake on bed. Drowsy, confused. On Bipap, pt has been trying to remove mask several times, frequent visual checks done. Unable to tolerate PO meds- Dr Andrews informed. On telemetry; no signs of chest pain, crushing sensation and heaviness noted. On blood sugar monitoring, taken and recorded; with sliding scale ordered- omitted, pt not eating and drinking. With SL at L FA- intact; on IV antibiotics. Refusing to be turned; tried to hit the staff. Vital signs stable. Falls bundle in place. Dr Andrews informed during his rounds this AM that pt has been very confused, on Bipap last night and informed him that LEDGER POSTER has been called last night; orders obtained for PICC line insertion, transfer to CCU- house manager informed, to start IVF and PPN. IV nurse informed re: PICC line insertion, consent obtained from pt's sister(MARTY) Angelina- update given as well re: pt's current status and plan to transfer to CCU; telephone consent witness by co-RN Bianca- form signed, IV nurse updated; PICC line inserted at R upper arm; PPN and IV fluids Followed up with evening or night nurse supervisor re:transfer at 11:30am, still a/w bed to be available- updated her re: pt's status. Pt's advance directive faxed- Dr Andrews informed and sent the copy; a/w orders to change pt's code status. Followed up with house manager again re: transfer at 1410- still a/w bed. To continue monitoring patient.
[2020-04-07 15:14] VITALS: BP 128/66
[2020-04-07 18:39] VITALS: BP 122/76
--- NOTE | 2020-04-07 19:10 | NUR ---
PT TRANSFERED FROM [facility] ON A BIPAP. ORDERS GIVEN TO INITAITE SOFT RESTRAINTS. SISTER NOTIFIED.
--- NOTE | 2020-04-07 19:40 | NUR ---
PICC LINE WAS PULLED OUT BY THE PATIENT- LINE REPLACED- XRAY SHOWS LINE IN GOOD POSITION FOR USE
--- NOTE | 2020-04-07 19:54 | NUR ---
ASSUMED PT CARE AT 1900. AT THIS GANESH, PT IS OBSERVED CALM. OPENS EYES AND GETS LOUD AND ANGRY WHEN I TRY TO REPOSITION HIM. BIPAP IN PLACE. RED WRIST RESTRAINTS IN PLACE.LIGHT YELLOW U/O NOTED IN SANTOS BAG.AFIB CONTROLLED ON TELEMETRY.PICC IN PLACE TO RUA. CORTEZ ELEVATED ON PILLOW.
[2020-04-08 00:09] VITALS: BP 132/80
[2020-04-08 04:30] VITALS: BP 126/74
[2020-04-08 05:07] LABS: HEMATOCRIT 33.5 % (42.0-52.0); HEMOGLOBIN 10.8 gm/dL (14.0-18.0); MCH 30.5 pg (26.0-34.0); MCHC 32.3 g/dL (28.0-37.0); MCV 94.4 fL (80.0-100.0); RBC 3.55 mil/uL (4.50-6.00); RDW 14.9 % (10.5-14.5); WBC 5.5 thou/uL (4.0-11.0)
[2020-04-08 05:22] LABS: CALCIUM 10.4 mg/dL (8.5-10.1); CREATININE 1.8 mg/dL (0.7-1.3)
[2020-04-08 08:00] VITALS: BP 128/55
[2020-04-08 11:59] VITALS: BP 122/86
[2020-04-08 15:40] VITALS: BP 117/62
--- NOTE | 2020-04-08 19:55 | NUR ---
ASSUMED CARE AT CHANGE OF SHIFT. ALERT AWAKE, 5L NASAL CANNULA, RESTRAINTS IN PLACE DUE TO PULLING OUT PICC. CONTROLED AFIB. MANAGE PAIN WITH SCHEDULED AND PRN MEDICATIONS. SANTOS IN PLACE. NO BM TODAY. ABLE TO TAKE PILLS WHOLE. HOURLY ROUNDING. STAFF TO ANTICIPATE NEEDS. FALL PRECAUTIONS IN PLACE.
[2020-04-08 20:07] VITALS: BP 120/44
--- NOTE | 2020-04-09 03:42 | NUR ---
PT IS CONFUSED. ON BIAPA AT 30 PERCENT FIO2 OXYGEN SAUTRATION IS 97 PER CENT ON MACHINE. LUNGS ARE COARSE THROUGH OUT FOLLOEY TO DD WITH YELLOW URINE PRESENT. EDEMA 2-3 PLUS IN GENERALIZAED NOTED. SCDS ON BILAERAL. RESTRAINTS ON IN TO KEEP PICC LINE ON HIS BIAPAP ON HE IS IMPULSEIVE. WILL CONTINUE TO ASSESS AND MONITOR PER MORE
[2020-04-09 06:00] LABS: HEMATOCRIT 32.2 % (42.0-52.0); HEMOGLOBIN 10.5 gm/dL (14.0-18.0); MCH 30.8 pg (26.0-34.0); MCHC 32.6 g/dL (28.0-37.0); MCV 94.3 fL (80.0-100.0); RBC 3.42 mil/uL (4.50-6.00); RDW 15.4 % (10.5-14.5); WBC 4.9 thou/uL (4.0-11.0)
[2020-04-09 06:01] LABS: CALCIUM 10.3 mg/dL (8.5-10.1); CREATININE 1.6 mg/dL (0.7-1.3); POTASSIUM 4.7 mmol/L (3.5-5.1)
[2020-04-09 06:14] VITALS: BP 100/71
[2020-04-09 07:12] VITALS: BP 122/65
--- NOTE | 2020-04-09 07:50 | NUR ---
PATIENT SEEN BY KISHA GUILLAUME DEPLOYMENT ENGINEER WITH DR. HURST, AND REHAB RECOMMENDATION WAS FOR SKILLED STAY. PATIENT AT TIME OF KISHA'S VISIT WAS UNABLE TO FOLLOW COMMANDS, UNLIKELY TO TOLERATE 3 HOURS OF THERAPY AND THERE WERE CONCERNS ABOUT DISCHARGE TO HOME. IF THERE IS IMPROVEMENT IN THE PATIENT'S COGNITVE/PHYSICAL CONDITION, HE CAN BE REASSESSED FOR ACUTE REHAB STAY. THANK YOU FOR THIS REFERRAL.
[2020-04-09 13:15] VITALS: BP 122/67
--- NOTE | 2020-04-09 14:23 | NUR ---
PT HAD BEEN TRANSFERED TO OVER THE WEEKEND. MARCIA CALLED AND SPOKE WITH PT'S NURSE THIS AM. SHE INDICATED THAT PT IS OUT OF SOFT RESTRAINTS AND IS CLEARED TODAY. PT WAS HAVING EEG, CT OF THE HEAD, AND MAYBE AN MRI DONE THIS DAY. PT'S SISTER/DPOA SERGEY SHAW WAS AT BEDSIDE THIS MORNING. SHE HAD INDICATED THAT SHE AND PT W[facility] CM MET WITH PT AND SISTER AT BEDSIDE. THEY INDICATED THAT THERE ARE NO CONCERNS ABOUT CARE PROVIDED THEY WERE JUST WANTING TO RECIEVED CONTINUED CARE AT THE [facility] WHERE PT IS FOLLOWED. MARCIA CALLED TRANSFER NURSE AND SHE INDICATED THAT THEY HAVE OPEN BEDS AND WOULD REVIEW REFERRAL. CM FAXED CLINICAL. AWAITING RESPONSE.
[2020-04-09 16:00] VITALS: BP 116/78
--- NOTE | 2020-04-09 16:59 | HC ---
[facility] [place] [address] CONSULTATION Name: ELICIA GRAYSON Room #: 201-P ADM IN M.R.#: [id number] Admission: 03/29/20 Attend Phys: Goran Giron MD Discharge: Date of : 47 Report #: [id number] THIS REPORT FOR: cc: FAM - No family physician/PCP FAM - No family physician/PCP Chase Barragan MD ~ DATE OF SERVICE: 04/09/2020 The patient is in room number 201. HISTORY OF PRESENT ILLNESS: This is a 74-year-old male patient who is admitted with multiple problems. Neurology consultation is requested to evaluate the patient for altered mental status and I will confine myself for the evaluation for that. The patient is not able to provide any reliable history. I talked to the nurses looking after this patient and I reviewed the records. I tried to call the patient's sisters, but she did not answer so I was not able to talk to her. The patient is admitted with what looks like staph infection. He was having some back pain and they did an MRI on him to look for any epidural abscess or any other problem. He states his back pain is better. That is being already addressed by ID. Neurology consultation is requested for confusion. According to nurses, he was confused and agitated yesterday. I am not able to get a history what his baseline is and if he has any underlying dementia. This is because I cannot reach any family member. His records indicated that he was bradycardic as well as hypoxic when EMS reached to pick him up after the call. He is morbidly obese, but I cannot get a history if the patient has any prior history of sleep apnea and whether he takes any treatment. REVIEW OF SYSTEMS: Review of systems is mostly from the records. This patient has pretty extensive spondylitic changes on the lumbar spine on multiple imagings, which were done. He has a history of neuropathy. I do not know how bad that is. He has a history of diabetes. He has a history of COPD. He has a history of atrial fibrillation and he is on anticoagulation. He does have a history of hypertension and congestive heart failure. This is all the history I can get, but I cannot get in this patient is what his baseline cognition was. Even when he came in, H and P indicates that he is a poor historian. This was the patient's relevant 14-point review of system. PAST MEDICAL HISTORY: Positive for multiple things including diabetes as described above. [facility] [address] [place] [address] CONSULTATION Name: ELICIA GRAYSON Room #: 201-P ADM IN [facility]#: [id number] Admission: 03/29/20 Attend Phys: Goran Giron MD Discharge: Date of : 47 Report #: [id number] FAMILY HISTORY: Unavailable. SOCIAL HISTORY: The records indicate he does use alcohol, but not clear how much he uses. PHYSICAL EXAMINATION: Pretty limited. He can talk, but sometime I have difficult time understanding his talk. When asked what month it is, he says it is April. He did not tell me the exact date. He was able to tell me what hospital he is in and he was able to name the president. Cranial nerve examination was pretty difficult. He will not open his eyes and follow my fingers. He says it hurts. In fact, that was the main pain he was having. I cannot tell whether his whole extraocular movements are intact or he is having some diplopia. Rest of the cranial nerve examinations appear noncontributory, the best it could be done. He moves all 4 extremities and his movement looks symmetrical. He can at least move against gravity and at least some force. I do not know what his baseline is. He did not do very well on position sense persistently. His pinprick was diminished in the lower extremities symmetrically, but it appeared to be present in the upper extremities. The best I can tell the reflexes appeared to be present, but I cannot be certain. His plantars are mute. There is no meningeal sign. There is no carotid bruit in this patient. He is morbidly obese. His pulses are somewhat difficult to feel in the lower extremities. Cardiac and respiratory examinations appear noncontributory. Blood pressure is 122/65, pulse is 74, temperature is 97.5. LABORATORY DATA: His white count is normal at 4.9 and he still has a low GFR at 43, but is better than when he came in and it was 23. IMPRESSION: As far as altered mental status is concerned, it is very difficult to tell in this patient because I do not know what the baseline is and I cannot reach the family. If he did have some early dementia than infection is likely to decompensate it and produce encephalopathy. If he was drinking alcohol in the baseline than that can also cause some delirium as a part of withdrawal. 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 His problem with the eyes ____ and a better examination need to be done in this patient. RECOMMENDATIONS: 1. We will go ahead and get an MRI done in this patient and at the same time get an MRV done to make sure there is no pathology in the cavernous sinus. 2. I will get an EEG done to look for any encephalopathy. 3. I will continue to make an effort to reach the family. 4. He has numerous other medical issues going on including back pain and sepsis. I will defer evaluation and management of that to yourself as well as other surgical product sales consultant and confine myself for evaluation and management of his altered mental status. [facility] [address] [place] [address] CONSULTATION Name: ELICIA GRAYSON Room #: 201-P ADM IN M.R.#: [id number] Admission: 03/29/20 Attend Phys: Goran Giron MD Discharge: Date of : 47 Report #: [id number] Thank you very much for allowing me to share in the management of this patient and we will follow this patient along with you. More than 50 minutes of time was spent taking care of this patient today and majority counseling and co ordinating <ELECTRONICALLY SIGNED> By: Chase Barragan MD 04/09/20 [id number] Chase Barragan MD /nt
[2020-04-09 20:00] VITALS: BP 155/99
--- NOTE | 2020-04-09 20:25 | NUR ---
RECEIVED PT'S CARE AROUND 0715; PT. ON BED; RESTING WITH EYES CLOSED; ON BYPAP; AFIB ON THE MONITOR; DURING AM ASSESSMENT PT. AOX4; NO C/O PAIN; C/O PAIN WITH TURNINGS AND REPOSITION ON BED; EDUCATED ABOUT THE IMPORTANCE OF TURNING; DURING THE AFTERNOON PT. GONE FOR CT; C/O PAIN DURING TRANSFER FROM BED TO CAR; UPSET; MADED FIST WITH R & L HANDS; EDUCATED ABOUT NEED OF TRANSFERING AND TEST; UPSET; THROUGH THE DAY TURNING FROM SIDE TO SIDE; NOTICED BED PRESSURE OVER L. SIDE BUTTOCKS; ZGUARD APPLIED; PASSED ON REPORT; 02 TITRATE TO RA; PT. ABOVE 90%; REQUESTED BY SISTER TO BE TRANSFER TO [facility]; FEDERAL AGENT NOTIFIED; AWARE OF REQUESTED; PER DR. SHAFER MRI NOT NEEDED; DR. LONDON NOTIFIED ABOUT PT. EATING; ORDERS RECEIVED; D/C PPN AND FLUIDS; PER FEDERAL AGENT COVID TEST NEEDED FOR POSSIBLE TRANSFER; PERFORMED; ASSESSMENT CHARGED; FOLLOWING POC; PASSED ON REPORT;
[2020-04-10 04:00] VITALS: BP 109/76
--- NOTE | 2020-04-10 04:22 | NUR ---
PT LESS CONFUSED NO RESTRAINTS AT START OF SHIFT, PT FOLLOWS DIRECTIONS, PRN PAIN MEDS GIVEN FOR CHRONIC BACK PAIN, REPOSITIONED SLOWLY, UPPER EXTREMITY TREMORS NEEDS ASSIST WITH PO INTAKE, WILL CON'T TO MONITOR PER PPOC.
[2020-04-10 07:23] VITALS: BP 123/70
[2020-04-10] MEDS ORDERED: SEROQUEL 25 MG25 M1 PO (11:06)
[2020-04-10] MEDS ORDERED: MORPHINE SULFAT15 M3 PO (11:06)
[2020-04-10] MEDS ORDERED: MIRALAX17 GM PO (11:06)
[2020-04-10] MEDS ORDERED: VITAMIN B-1100 M2 PO (11:06)
[2020-04-10] MEDS ORDERED: ALBUTEROL2.5 MG/0.5 INH (11:06)
[2020-04-10] MEDS ORDERED: LIDOPATCH1 EACH TRANSDERM (11:06)
[2020-04-10] MEDS ORDERED: ACETAMINOPHEN325 M1 PO (11:06)
[2020-04-10] MEDS ORDERED: HYDROCODON-ACE1 EAC7 PO (11:06)
--- NOTE | 2020-04-10 11:38 | NUR ---
[facility]. CHART COPY MADE. CM FAXED NEGATIVE COVID TEST DONE YESTERDAY. CM ARRANGED [facility] TRANSPORT WITH 4L O2 FOR 12:00 TODAY. CM PROVIDED NURSE NUMBER [place] NURSE [place] NURSE [place] EXT [id number]. ACCEPTING PHYSICIAN IS DR. DANYA JUNIOR. PT GOING TO UNIT 8 WEST. CM CALLED AND NOTIFIED PT'S SISTER. SHE IS AWARE AND AGREEABLE. NO OTHER INTERVENTION INDICATED. CASE CLOSED.
[2020-04-10 11:51] VITALS: BP 131/75
--- NOTE | 2020-04-10 11:58 | NUR ---
ASSUMED CARE AT SHIFT CHANGE, ASSESSMENT DOCUMENTED, VSS, AND PATIENT C/O BACK PAIN. REPOSITIONED NEEDED FOR COMFORT. SANTOS WAS NOT DRAINING THIS MORNING, AND WAS REPLACED WITH 16F AND DRIANING DARK VASHTI URINE. REPORT GIVEN TO ADINA NELSON AT [facility] AND PATIENT WILL TRANFERED TODAY.
--- NOTE | 2020-04-10 13:51 | NUR ---
Spoke with RN patients belongings left behind. Patient transferred to the [facility] 8 west room 202. Sp with the [facility] who has [facility] monitor that went with patient. Sp to Director approval for [employer] medical to transport to bring patients belongings to patient at [facility]. From the [facility] planned to retrieve our heart monitor and return to unit. Updated RN and patients sister. Sp with the [facility] and alerted of plan above.
--- NOTE | 2020-04-12 14:27 | NUR ---
CM RECIEVED PC FROM [facility] TRANSFER NURSE AT THE [facility] REGARDING PT. SHE STATED THAT PT'S CONDITION IS DECLINING AND THEY NEED MRI IMAGING FROM PT'S STAY. CM ASKED IF THEY COULD RECIEVED CLOUDED IMAGING AND SHE INDICATED THEY COULDN'T THAT A PHYSICIAL DISC WOULD NEED TO BE COURIERED. CM CONTACTED [facility] AND REQUESTED DISC BE MADE. CM CALLED [employer] AND ARRANGED SKIDWAY WORKER REFERENCE NUMBER [id number]. THEY INDICATED THAT SKIDWAY WORKER WOULD BE HERE IN 15 MINS. CM NOTIFIED [facility]. THEY ASKED THAT DISC BE RJ TO ADMISSIONS ATTN TRANSFER NURSE STEVE. CM NOTIFIED RADIOLOGY.
== END 2020-04-10 12:26 | DRG 871 ==
LOC: ER 14:24 → 2N 19:47 → 4W 19:47 → EROBS 19:47 → 4W 03-30 20:19 → 2N 04-07 18:18
PROVIDERS: Emergency Medicine; Hospitalist; Internal Medicine; Nurse Practitioner Family; Specialist; ADMIT Hospitalist; ATTEND Hospitalist
DX: A41.1 Sepsis due to other specified staphylococcus (principal); J96.90 Respiratory failure, unspecified, unspecified whether with hypoxia or hypercapnia; N17.0 Acute kidney failure with tubular necrosis; L03.114 Cellulitis of left upper limb; I48.20 Chronic atrial fibrillation, unspecified; I50.32 Chronic diastolic (congestive) heart failure; I42.9 Cardiomyopathy, unspecified; G93.40 Encephalopathy, unspecified; E87.0 Hyperosmolality and hypernatremia; Z20.828 Contact with and (suspected) exposure to other viral communicable diseases; E11.42 Type 2 diabetes mellitus with diabetic polyneuropathy; G47.33 Obstructive sleep apnea (adult) (pediatric); E78.5 Hyperlipidemia, unspecified; J44.9 Chronic obstructive pulmonary disease, unspecified; M47.896 Other spondylosis, lumbar region; E66.01 Morbid (severe) obesity due to excess calories; I11.0 Hypertensive heart disease with heart failure; M48.061 Spinal stenosis, lumbar region without neurogenic claudication; Z60.2 Problems related to living alone; E87.5 Hyperkalemia; Z79.01 Long term (current) use of anticoagulants; Z88.8 Allergy status to other drugs, medicaments and biological substances; Z68.38 Body mass index [BMI] 38.0-38.9, adult; Z79.899 Other long term (current) drug therapy
CPT/HCPCS: 10045; 10081; 27000